=== PATIENT | male | born 1955 | race Two or more races ===

== ENCOUNTER 2019-09-28 10:08 | Emergency (ER) | payer OTHER ==
--- OUTSIDE RECORDS SUMMARY | 2019-09-28 10:22 | XMS REPORT | Continuity of Care Document ---
:1955 External Reference #:[id number] Author Name Saturnino Kapoor MD Address [address] [place] [id number] Problems Active Problems Provider Date Knee pain Saturnino Kapoor MD Onset: 09/03/2015 Pain in limb Saturnino Kapoor MD Onset: 09/03/2015 Anemia Saturnino Kapoor MD Onset: 09/09/2015 Hypothyroidism Saturnino Kapoor MD Onset: 09/09/2015 Vitamin D deficiency Saturnino Kapoor MD Onset: 09/09/2015 Family history of ischemic heart disease and Saturnino Kapoor MD Onset: other diseases of the circulatory system beta Thalassemia Saturnino Kapoor MD Onset: 04/02/2016 Social History Type Date Description Comments Sex Unknown ETOH Use consumes 3-4 glasses per week Tobacco Use Start: Unknown Patient has never smoked Recreational Drug Use Never Used Drugs Exercise Type/Frequency Does not exercise Allergies, Adverse Reactions, Alerts Description No Known Drug Allergies Medications Active Medications SIG Qnty Indications Ordering Date Provider Mediplot 10 Once daily I10 Unknown 07/12/2018 Aspirin 81 Low Dose chew and swallow 1 Z82.49 Matamoros A 05/31/2018 tablet by mouth MD Antwon 81mg Chewtabs daily for disease of the arteries of the heart Vitamin D3 1 by mouth every E55.9 Matamoros A 09/09/20151999Unit day MD Antwon Capsules Levothyroxine Sodium take 1 tablet by 90tabs E03.9 Matamoros A 07/12/2005 mouth every morning MD Antwon 50mcg Tablets on empty stomach for underactive thyroid Immunizations CPT Code Status Date Vaccine Lot # [id number] Given 05/31/2018 Influenza Vaccine Quadrivalent [id number] Preser/Antibiotic Free Im Use [address] Given 03/23/2017 Influenza Vaccine Quadrivalent Preser/Antibiotic Free Im Use 35269 Given 03/23/2017 Influenza Virus Vaccine Split Virus Use For [id number] Individual 3Yr Older 11771 Given 04/02/2016 Influenza Virus Split 3 Yrs And Above For [id number] Intramuscular Use 93753 Given 09/09/2015 Tdap-Tetanus, Diphtheria Toxoids/Acellular [id number] Tdap Pertussis Vaccine 7+ Vital Signs Date Vital Result Comment 09/22/2019 12:41pm Body Temperature 98.5 F Heart Rate 76 /min BP Systolic 128 mmHg BP Diastolic 80 mmHg Weight 157.00 lb 12/20/2018 1:04pm Body Temperature 98.4 F Heart Rate 66 /min BP Systolic 125 mmHg BP Diastolic 80 mmHg Weight 156.00 lb Results Test Acquired Date Facility Test Result H/L Range Note CBC Auto 09/21/2019 [facility] White Blood 7.8 10^3/uL Normal 3.5-10.8 [place] [address] Count [phone] Red Blood Count 6.37 10^6/uL High 4.18-5.48 Hemoglobin 13.5 g/dL Low 14.0-18.0 Hematocrit 41 % Low 42-52 Mean Corpuscular Volume 65 fL Low 80-94 Mean Corpuscular Hemoglobin 21 pg Low 27-31 Mean Corpuscular HGB Conc 33 g/dL Normal 31-36 Red Cell Distribution Width 18 % High 10-15 Platelet Count 197 10^3/uL Normal 150-450 Mean Platelet Volume 9.1 fL Normal 7.4-10.4 Manual Differential 09/21/2019 [facility] Neutrophil % 53.0 % [place] [address] [phone] Lymphocytes % 25.0 % Monocytes % 18.0 % Eosinophils % 4.0 % Microcytosis 3+ Hypochromasia 2+ Comp Metabolic 09/21/2019 [facility] Sodium 136 mmol/L Normal 135-145 Panel [place], [place] [id number] [phone] Potassium 4.5 mmol/L Normal 3.5-5.0 Chloride 101 mmol/L Normal 101-111 Co2 Carbon Dioxide 26 mmol/L Normal 22-32 Anion Gap 9 mmol/L Normal 2-11 Glucose 103 mg/dL High 70-100 Blood Urea Nitrogen 14 mg/dL Normal 6-24 Creatinine 1.00 mg/dL Normal 0.67-1.17 BUN/Creatinine Ratio 14.0 Normal 8-20 Calcium 9.7 mg/dL Normal 8.6-10.3 Total Protein 6.9 g/dL Normal 6.4-8.9 Albumin 4.1 g/dL Normal 3.2-5.2 Globulin 2.8 g/dL Normal 2-4 Albumin/Globulin Ratio 1.5 Normal 1-3 Total Bilirubin 4.40 mg/dL High 0.2-1.0 Alkaline Phosphatase 121 U/L High 34-104 Egfr Non- 75.7 >60 Egfr 91.6 >60 1 Alt 2177 U/L High 7-52 Ast 1512 U/L High 13-39 Laboratory test 09/21/2019 [facility] PSA Diagnostic 1.000 ng/ mL 0-4.0 2 [place] [address] [phone] 1 Because ethnic data is not always readily available, this report includes an eGFR for both -Americans and non- Americans. The National Kidney Disease Education Program (NKDEP) does not endorse the use of the MDRD equation for patients that are not between the ages of 18 and 70, are , have extremes of body size, muscle mass, or nutritional status, or are non- or non-. According to the National Kidney Foundation, irrespective of diagnosis, the stage of the disease is based on the level of kidney function: Stage Description GFR(mL/min/1.73 m(2)) 1 Kidney damage with normal or decreased GFR 90 2 Kidney damage with mild decrease in GFR 60-89 3 Moderate decrease in GFR 30-59 4 Severe decrease in GFR 15-29 5 Kidney failure <15 (or dialysis) 2 Serum levels of PSA measured using the [employer] DXI Hybritech immunoassay should not be interpreted as absolute evidence of the presence or absence of disease. The PSA value should be used in conjunction with other pertinent clinical diagnostic procedures. The values obtained with different assay methods or kits cannot be used interchangeably. Procedures Date Code Description Status 09/07/2018 [id number] Colonoscopy Completed 03/26/2008 [id number] Colonoscopy Completed Medical Devices Description No Information Available Encounters Description No Information Available Assessments Date Code Description Provider 09/22/2019 R17 Unspecified jaundice Saturnino Kapoor MD 09/22/2019 R94.5 Abnormal results of liver function studies Saturnino Kapoor MD Plan of Treatment Future Appointment(s):09/26/2019 9:00 am - Saturnino Kapoor MD at Main Aaohhr3009/22/2019 - Saturnino Kapoor, MDR17 Unspecified wkibjfhiU30.5 Abnormal results of liver function studiesAllFollow up:Please arrange CT HODA and labs on Wednesday and arrange f/u after results are available. Functional Status Description No Information Available Mental Status Description No Information Available Referrals Description No Information Available
--- OUTSIDE RECORDS SUMMARY | 2019-09-28 10:22 | XMS REPORT | Continuity of Care Document ---
:1955 External Reference #:[id number] Author Name Saturnino Kapoor MD (transmitted by agent of provider [employer]) Address [address] [place] [phone] Problems Active Problems Provider Date Knee pain [...] Mediplot 10 Once daily I10 Unknown 07/12/2018 Vitamin D3 1 by mouth every E55.9 Matamoros A 09/09/20151999Un day MD Antwon Capsules Levothyroxine Sodium take 1 tablet by 90tabs E03.9 Matamoros A 07/12/2005 mouth every morning MD Antwon 50mcg Tablets on empty stomach for underactive thyroid Immunizations CPT Code Status Date Vaccine Lot # [id number] Given 05/31/2018 Influenza Vaccine Quadrivalent [id number] Preser/Antibiotic Free Im Use 13536 Given 03/23/2017 Influenza Vaccine Quadrivalent Preser/Antibiotic Free Im Use 32015 Given 03/23/2017 Influenza Virus Vaccine Split Virus Use For 180849 Individual 3Yr Older 96223 Given 04/02/2016 Influenza Virus Split 3 Yrs And Above For [id number] Intramuscular Use 93560 Given 09/09/2015 Tdap-Tetanus, Diphtheria Toxoids/Acellular [id number] Tdap Pertussis Vaccine 7+ Vital Signs Date Vital Result Comment 09/22/2019 12:41pm Body Temperature 98.5 F Heart Rate 76 /min BP Systolic 128 mmHg BP Diastolic 80 mmHg Weight 157.00 lb 12/20/2018 1:04pm Body Temperature 98.4 F Heart Rate 66 /min BP Systolic 125 mmHg BP Diastolic 80 mmHg Weight 156.00 lb Results Test Acquired Date Facility Test Result H/L Range Note Laboratory test 09/25/2019 [facility] Lipase 47 U/L Normal 11.0-82.0 [place] [address] [phone] Amylase 71 U/L Normal 29-103 Hepatitis B Surface Ag Nonreactive Nonreactive Hepatitis C Antibody 09/25/2019 [facility] HCV Index 0.02 [place] [address] [phone] Hepatitis C Antibody Negative Negative Liver Function 09/25/2019 [facility] Total Protein 7.3 g/dL Normal 6.4-8.9 [place] [address] [phone] Albumin 4.3 g/dL Normal 3.2-5.2 Globulin 3.0 g/dL Normal 2-4 Albumin/Globulin Ratio 1.4 Normal 1-3 Total Bilirubin 1.80 mg/dL High 0.2-1.0 Direct Bilirubin 0.70 mg/dL High 0.03-0.18 Indirect Bilirubin 1.1 mg/dL High 0.3-1.0 Alkaline Phosphatase 115 U/L High 34-104 Ast 129 U/L High 13-39 Alt 769 U/L High 7-52 Laboratory 09/25/2019 [facility] GGTP 386 U/L High 9-64.0 [place] [address] [phone] Inr/Protime 09/25/2019 [facility] Inr 1.03 Normal 0.82-1.09 1 [place] [address] [phone] Laboratory 09/25/2019 [facility] Hepatitis A Negative [place] [address] AB IgM [phone] Hepatitis A IgG Antibody, S Positive 2 Xray 09/22/[address] [facility] [address], Abdomen; Abnormal [address] [place] [address] [place] [place] [address] Contrast [phone] CBC Auto 09/21/2019 [facility] White Blood 7.8 10^3/uL Normal 3.5-10 [place] [address] Count .8 [phone] Red Blood Count 6.37 10^6/uL High 4.18-5.48 Hemoglobin 13.5 g/dL Low 14.0-18.0 Hematocrit 41 % Low 42-52 Mean Corpuscular Volume 65 fL Low 80-94 Mean Corpuscular Hemoglobin 21 pg Low 27-31 Mean Corpuscular HGB Conc 33 g/dL Normal 31-36 Red Cell Distribution Width 18 % High 10-15 Platelet Count 197 10^3/uL Normal 150-450 Mean Platelet Volume 9.1 fL Normal 7.4-10.4 Manual Differential 09/21/2019 [facility] Neutrophil % 53.0 % [place] [address] [phone] Lymphocytes % 25.0 % Monocytes % 18.0 % Eosinophils % 4.0 % Microcytosis 3+ Hypochromasia 2+ Abs Neutrophils 4.1 10^3/uL Normal 1.5-7.7 Abs Lymphocytes 2.0 10^3/uL Normal 1.0-4.8 Abs Monocytes 1.4 10^3/uL High 0-0.8 Abs Eosinophils 0.3 10^3/uL Normal 0-0.6 Comp Metabolic 09/21/2019 [facility] Sodium 136 mmol/L Normal 135-145 Panel [place], [place] [address] [phone] Potassium 4.5 mmol/L Normal 3.5-5.0 Chloride 101 [...] Egfr Non- 75.7 >60 Egfr 91.6 >60 3 Alt 2177 U/L High 7-52 Ast 1512 U/L High 13-39 Laboratory test 09/21/2019 [facility] PSA Diagnostic 1.000 ng/ mL 0-4.0 4 [place] [address] [phone] Pathologist Review (SEE NOTE) 5 1 Standard intensity warfarin therapeutic range: 2.0-3.0 High intensity warfarin therapeutic range: 2.5-3.5 2 Result indicates immunity to hepatitis A infection from either vaccination or past exposure to hepatitis A. False-positive results may be observed in patients with CMV antibodies or heterophilic antibodies. REFERENCE VALUE Unvaccinated: Negative Vaccinated: Positive Test Performed by: [place] [address] Head Of Partner Development: Mac Hernandes M.D. Ph.D.; [facility]# [id number] 3 Because ethnic data is not always readily [...] 15-29 5 Kidney failure <15 (or dialysis) 4 Serum levels of PSA measured using the [employer] DXI Hybritech immunoassay should not be interpreted as absolute evidence of the presence or absence of disease. The PSA value should be used in conjunction with other pertinent clinical diagnostic procedures. The values obtained with different assay methods or kits cannot be used interchangeably. 5 Microcytic anemia with RBC indices suggestive of a thalassemia. Recommend correlation with hemoglobin electrophoresis for further characterization. Reviewed by Jayla Jones MD Procedures Date Code Description Status 09/07/2018 [id number] Colonoscopy Completed 03/26/2008 [id number] Colonoscopy Completed Medical Devices Description No Information Available Encounters Type Date Location Provider Dx Diagnosis Office Visit 09/26/2019 Main Office Saturnino Kapoor K83.1 Obstruction of bile 9:00a MD duct R94.5 Abnormal results of liver function studies Office Visit 09/22/2019 12:40p Main Office Saturnino Kapoor, R17 Unspecified jaundice R94.5 Abnormal results of liver function studies Assessments Date Code Description Provider 09/26/2019 K83.1 Obstruction of bile duct Saturnino Kapoor MD 09/26/2019 R94.5 Abnormal results of liver function studies Saturnino Kapoor MD 09/22/2019 R17 Unspecified jaundice Saturnino Kapoor MD 09/22/2019 R94.5 Abnormal results of liver function studies Saturnino Kapoor MD Plan of Treatment Future Appointment(s):10/05/2019 9:00 am - Saturnino Kapoor MD at Main Nnkpvi1309/26/2019 - Saturnino Kapoor MDK83.1 Obstruction of bile ductReferral: Luis Eduardo Pruett MD, UxogjxypjbcxripoD94.5 Abnormal results of liver function studiesReferral:Luis Eduardo Pruett MD, GastroenterologyAllComments:Reports d/w, copies provided.Options of evaluation d/w in detail.Referred to GI for further evaluation and management and advised to delay his travel till we have proper diagnosis and plan for proper management. Functional Status Description No Information Available Mental Status Description No Information Available Referrals Refer to Reason for Referral Status Appt Date Luis Eduardo Pruett MD Sent [address] [place] [address] [phone]
--- OUTSIDE RECORDS SUMMARY | 2019-09-28 10:22 | XMS REPORT | Continuity of Care Document ---
:1955 External Reference #:[id number] Author Name Saturnino Kapoor MD (transmitted by agent of provider [employer]) Address [address] [place] [phone] Problems Active Problems Provider Date Knee pain [...] CPT Code Status Date Vaccine Lot # [id number] Given 05/31/2018 Influenza Vaccine Quadrivalent [id number] Preser/Antibiotic Free Im Use 17620 Given 03/23/2017 Influenza Vaccine Quadrivalent Preser/Antibiotic Free Im Use 94795 Given 03/23/2017 Influenza Virus Vaccine Split Virus Use For [id number] Individual 3Yr Older 64201 Given 04/02/2016 Influenza Virus Split 3 Yrs And Above For [id number] Intramuscular Use 84350 Given 09/09/2015 Tdap-Tetanus, Diphtheria Toxoids/Acellular [id number] Tdap Pertussis Vaccine 7+ Vital Signs Date [...] Result H/L Range Note CBC Auto 09/21/2019 [facility] White Blood 7.8 10^3/uL Normal 3.5-10.8 [place] [address] Count [phone] Red Blood Count 6.37 10^6/uL High 4.18-5.48 Hemoglobin 13.5 g/dL Low 14.0-18.0 Hematocrit 41 % Low 42-52 Mean Corpuscular Volume 65 fL Low 80-94 Mean Corpuscular Hemoglobin 21 pg Low 27-31 Mean Corpuscular HGB Conc 33 g/dL Normal 31-36 Red Cell Distribution Width 18 % High 10-15 Platelet Count 197 10^3/uL Normal 150-450 Mean Platelet Volume 9.1 fL Normal 7.4-10.4 Manual Differential 09/21/2019 [facility] Neutrophil % 53.0 % [place] [address] [phone] Lymphocytes % 25.0 % Monocytes % 18.0 % Eosinophils % 4.0 % Microcytosis 3+ Hypochromasia 2+ Comp Metabolic 09/21/2019 [facility] Sodium 136 mmol/L Normal 135-145 Panel [place], [place] [address] [phone] Potassium 4.5 mmol/L Normal 3.5-5.0 Chloride 101 [...] 1512 U/L High 13-39 Laboratory test 09/21/2019 [facility] PSA Diagnostic 1.000 ng/ mL 0-4.0 2 [place] [id number] [phone] 1 Because ethnic data is not always [...] Serum levels of PSA measured using the [employer] DXI Hybritech immunoassay should not be interpreted as absolute evidence of the presence or absence of disease. The PSA value should be used in conjunction with other pertinent clinical diagnostic procedures. The values obtained with different assay methods or kits cannot be used interchangeably. Procedures Date Code Description Status 09/07/2018 [id number] Colonoscopy Completed 03/26/2008 [id number] Colonoscopy Completed Medical Devices Description No Information Available Encounters Type Date Location Provider Dx Diagnosis Office Visit 09/22/2019 Main Office Saturnino Kapoor, R1Eliazar Unspecified jaundice 12:40p R94.5 Abnormal results of liver function studies Assessments Date Code Description Provider 09/22/2019 R17 Unspecified jaundice Saturnino Kapoor MD 09/22/2019 R94.5 Abnormal results of liver function studies Saturnino Kapoor MD Plan of Treatment Future Appointment(s):09/26/2019 9:00 am - Saturnino Kapoor MD at Main Aildvj2809/22/2019 - Saturnino Kapoor MDR1Eliazar Unspecified jaundiceComments: Painless jaundice in asymptomatic patient.High suspicion of pancreatic cancer.Tests recommended further plan of care pending availability of results.R94.5 Abnormal results of liver function studiesAllComments:Patient was leaving abroad on Wednesday and is advised against that for now.Follow up: Please arrange CT HODA and labs on Wednesday and arrange f/u after results are available. Functional Status Description No Information Available Mental Status Description No Information Available Referrals Description No Information Available
--- OUTSIDE RECORDS SUMMARY | 2019-09-28 10:22 | XMS REPORT | Continuity of Care Document ---
:1955 External Reference #:[id number] Author Name Saturnino Kapoor MD Address [address] [place] [address] Problems Active Problems Provider Date Knee pain [...] 1 by mouth every E55.9 Matamoros A 09/09/2015 day MD Antwon Capsules Levothyroxine Sodium take 1 tablet by 90tabs E03.9 Matamoros A 07/12/2005 mouth every morning MD Antwon 50mcg Tablets on empty stomach for underactive thyroid Immunizations CPT Code Status Date Vaccine Lot # [id number] Given 05/31/2018 Influenza Vaccine Quadrivalent [id number] Preser/Antibiotic Free [place] Use 95860 Given 03/23/2017 Influenza Vaccine Quadrivalent Preser/Antibiotic Free Im Use 04483 Given 03/23/2017 Influenza Virus Vaccine Split Virus Use For 454708 Individual 3Yr Older 19277 Given 04/02/2016 Influenza Virus Split 3 Yrs And Above For [id number] Intramuscular Use 25151 Given 09/09/2015 Tdap-Tetanus, Diphtheria Toxoids/Acellular [id number] Tdap Pertussis Vaccine 7+ Vital Signs Date [...] Result H/L Range Note Laboratory test 09/25/2019 [facility] Lipase 47 U/L Normal 11.0-82.0 finding [place], [place] [address] [phone] Amylase 71 U/L Normal 29-103 Hepatitis B Surface Ag Nonreactive Nonreactive Hepatitis C Antibody 09/25/2019 [facility] HCV Index 0.02 s/[place] [address] [phone] Hepatitis C Antibody Negative Negative Liver Function 09/25/2019 [facility] Total Protein 7.3 g/dL Normal 6.4-8.9 [place] [address] [phone] Albumin 4.3 g/dL Normal 3.2-5.2 Globulin 3.0 g/dL Normal 2-4 Albumin/Globulin Ratio 1.4 Normal 1-3 Total Bilirubin 1.80 mg/dL High 0.2-1.0 Direct Bilirubin 0.70 mg/dL High 0.03-0.18 Indirect Bilirubin 1.1 mg/dL High 0.3-1.0 Alkaline Phosphatase 115 U/L High 34-104 Ast 129 U/L High 13-39 Alt 769 U/L High 7-52 Laboratory 09/25/2019 [facility] GGTP 386 U/L High 9-64.0 [place] [address] [phone] Inr/Protime 09/25/2019 [facility] Inr 1.03 Normal 0.82-1.09 1 [place] [address] [phone] Laboratory 09/25/2019 [facility] Hepatitis A [place] [address] AB IgM [phone] Xray 09/22/[address] [facility] [address], Abdomen; Abnormal [address] [place] [address] Contrast [phone] CBC Auto Diff 09/21/2019 [facility] White Blood 7.8 10^3/uL Normal 3.5-10.8 [place] [address] Count [phone] Red Blood Count 6.37 10^6/uL High 4.18-5.48 Hemoglobin 13.5 g/dL Low 14.0-18.0 Hematocrit 41 % Low 42-52 Mean Corpuscular Volume 65 fL Low 80-94 Mean Corpuscular Hemoglobin 21 pg Low 27-31 Mean Corpuscular HGB Conc 33 g/dL Normal 31-36 Red Cell Distribution Width 18 % High 10-15 Platelet Count 197 10^3/uL Normal 150-450 Mean Platelet Volume 9.1 fL Normal 7.4-10.4 Manual Differential 09/21/2019 [facility] Neutrophil % 53.0 % [place] [address] [phone] Lymphocytes % 25.0 % Monocytes % 18.0 % Eosinophils % 4.0 % Microcytosis 3+ Hypochromasia 2+ Comp Metabolic 09/21/2019 [facility] Sodium 136 mmol/L Normal 135-145 [place] [address] [phone] Potassium 4.5 mmol/L Normal 3.5-5.0 Chloride 101 [...] Egfr Non- 75.7 >60 Egfr 91.6 >60 2 Alt 2177 U/L High 7-52 Ast 1512 U/L High 13-39 Laboratory test 09/21/2019 [facility] PSA Diagnostic 1.000 ng/ mL 0-4.0 3 finding [place] [id number] [phone] 1 Standard intensity warfarin therapeutic range: 2.0-3.0 High intensity warfarin therapeutic range: 2.5-3.5 2 Because ethnic data is not always readily [...] 15-29 5 Kidney failure <15 (or dialysis) 3 Serum levels of PSA measured using the [employer] DXI Hybritech immunoassay should not be interpreted as absolute evidence of the presence or absence of disease. The PSA value should be used in conjunction with other pertinent clinical diagnostic procedures. The values obtained with different assay methods or kits cannot be used interchangeably. Procedures Date Code Description Status 09/07/2018 [id number] Colonoscopy Completed 03/26/2008 [id number] Colonoscopy Completed Medical Devices Description No Information Available Encounters Type Date Location Provider Dx Diagnosis Office Visit 09/22/2019 Main Office Saturnino Kapoor, R17 Unspecified jaundice 12:40p R94.5 Abnormal results of [...] am - Saturnino Kapoor MD at Main Swrpnb2209/26/2019 - Saturnino Kapoor MDK83.1 Obstruction of bile ductReferral: Luis Eduardo Pruett MD, WamhxlxnxfljqucmF19.5 Abnormal results of liver function studiesReferral:uLis Eduardo Pruett MD, Gastroenterology Functional Status Description No Information Available Mental Status Description No Information Available Referrals Refer to Dr Reason for Referral Status Appt Date Luis Eduardo Pruett MD Created [address] [place] [address] [phone]
--- NOTE | 2019-09-28 10:30 | UC ---
FLU HPI - History of Current Complaint Stated Complaint: RESPIRATORY COMPLAINT Time Seen by Provider: 09/28/19 10:30 - Allergy/Home Medications Allergies/Adverse Reactions: Allergies Allergy/AdvReac Type Severity Reaction Status Date / Time No Known Allergies Allergy Verified 09/07/18 13:17 Home Medications: Home Medications Levothyroxine TAB* [Synthroid TAB*] 25 mcg PO DAILY 08/31/18 [History Confirmed 09/07/18] Madiplot 1 tab PO DAILY 09/07/18 [History Confirmed 09/07/18] PMH/Surg Hx/FS Hx/Imm Hx - Surgical History Surgical History: Yes Surgery Procedure, Year, and Place: thyroidectomy Discharge ED - Discharge Plan Referrals: Saturnino Kapoor MD [Primary Care Provider] -
--- NOTE | 2019-09-28 10:54 | UC ---
General HPI - HPI Summary HPI Summary: 64 yo male presents requesting labwork drawn. He tells me that he was just at the tertiary lab and told them he was in [place] 2 weeks ago and they sent him here. He is unsure why. He has not symptoms and feels well. He is requesting his routing labwork be drawn - he has an order with him from his PCP. Denies fever, cough, SOB, or contact with known COVID. - History of Current Complaint Stated Complaint: RESPIRATORY COMPLAINT Time Seen by Provider: 09/28/19 10:30 Current Severity: None - Allergy/Home Medications Allergies/Adverse Reactions: Allergies Allergy/AdvReac Type Severity Reaction Status Date / Time No Known Allergies Allergy Verified 09/28/19 11:42 Home Medications: Home Medications Levothyroxine TAB* [Synthroid TAB*] 25 mcg PO DAILY 08/31/18 [History Confirmed 09/07/18] Madiplot 1 tab PO DAILY 09/07/18 [History Confirmed 09/07/18] PMH/Surg Hx/FS Hx/Imm Hx Endocrine History: Hypothyroidism - Surgical History Surgical History: Yes Surgery Procedure, Year, and Place: thyroidectomy - Family History Known Family History: Positive: None - Social History Occupation: Employed Full-time Lives: With Family Alcohol Use: None Substance Use Type: None Smoking Status (MU): Former Smoker Review of Systems All Other Systems Reviewed And Are Negative: No Constitutional: Positive: Negative Skin: Positive: Negative Eyes: Positive: Negative ENT: Positive: Negative Respiratory: Positive: Negative Cardiovascular: Positive: Negative Gastrointestinal: Positive: Negative Neurological/Mental Status: Positive: Negative Psychological: Positive: Negative Physical Exam - Summary Physical Exam Summary: GENERAL: NAD. WDWN. No pain distress. SKIN: No rashes, sores, lesions, or open wounds. HEENT: Head: AT/NC Eyes: EOM intact. Conjunctiva clear without inflammation or discharge. Ears: Hearing grossly normal. TMs intact, no bulging, erythema, or edema. Nose: Nasal mucosa pink and moist. NTTP maxillary and frontal sinus. Throat: Posterior oropharynx without exudates, erythema, or tonsillar enlargement. Uvula midline. NECK: Supple. Nontender. No lymphadenopathy. CHEST: CTAB. No r/r/w. No accessory muscle use. Breathing comfortably and in no distress. CV: RRR. Pulses intact. Cap refill <2seconds NEURO: Alert. PSYCH: Age appropriate behavior. Triage Information Reviewed: Yes Vital Signs: Vital Signs: Temp Pulse Resp BP Pulse Ox 97.8 F 64 18 130/85 100 09/28/19 11:38 09/28/19 11:38 09/28/19 11:38 09/28/19 11:38 09/28/19 11:38 Vital Signs Reviewed: Yes Course/Dx - Course Course Of Treatment: Labwork drawn. - Diagnoses Provider Diagnosis: Normal exam Discharge ED - Sign-Out/Discharge Documenting (check all that apply): Patient Departure All imaging exams completed and their final reports reviewed: No Studies - Discharge Plan Condition: Stable Disposition: HOME Referrals: Saturnino Kapoor MD [Primary Care Provider] - - Billing Disposition and Condition Condition: STABLE Disposition: Home
[2019-09-28 11:42] VITALS: BP 130/85
[2019-09-28 14:22] LABS: ABS Basophils 0.1 10^3/ul (0-0.2); ABS Eosinophils 0.1 10^3/ul (0-0.6); ABS Lymphocytes 2.1 10^3/ul (1.0-4.8); ABS Monocytes 0.6 10^3/ul (0-0.8); ABS Neutrophils 3.9 10^3/ul (1.5-7.7); Albumin 4.5 g/dL (3.2-5.2); Calcium 10.1 mg/dL (8.6-10.3); Eosinophil % 1.2 %; Hematocrit 42 % (42-52); Hemoglobin 13.6 g/dL (14.0-18.0); Lymphocyte % 31.9 %; Mean Corpuscular HGB Conc 33 g/dL (31-36); Mean Corpuscular Hemoglobin 21 pg (27-31); Mean Corpuscular Volume 65 fL (80-94); Mean Platelet Volume 8.7 fL (7.4-10.4); Platelet Count 365 10^3/uL (150-450); Red Blood Count 6.42 10^6 /uL (4.18-5.48); Red Cell Distribution Width 18 % (10-15); Total Bilirubin 1.7 mg/dL (0.2-1.0); White Blood Count 6.7 10^3/uL (3.5-10.8)
[2019-09-28 14:28] LABS: Albumin/Globulin Ratio 1.5 (1-3); BUN/Creatinine Ratio 13.5 (8-20); EGFR Non-African American 79.4 (>60); Total Protein 7.5 g/dL (6.4-8.9)
[2019-09-28 14:43] LABS: Carcinoembryonic Antigen 1.8 ng/mL (0.1-5.0)
[2019-09-29 13:24] LABS: CA 19-9 19 U/mL (<35)
== END 2019-09-28 11:47 | disposition home or self-care (01) ==
LOC: UCEAST 10:08
DX: Z00.00 Encounter for general adult medical examination without abnormal findings (principal); E89.0 Postprocedural hypothyroidism; Z79.890 Hormone replacement therapy; Z87.891 Personal history of nicotine dependence
CPT/HCPCS: 36415; 80053; 82378; 84155; 84165; 85025; 86301; 86790; 99211; G0463